=== PATIENT | male | born 1990 | race Caucasian/White ===

== ENCOUNTER 2020-11-20 18:04 | Emergency (ER) | payer BC, OTHER ==
[~2020-11-20] VITALS: Ht 185.4 cm; Wt 73.5 kg
--- NOTE | 2020-11-20 18:13 | NUR ---
pt BIB [facility] from home for potential OD. per report, pt was drinking ETOH and snorted crushed-up pills, then went home to lay down on his couch to rest where he was found cyanotic and unarousable by his girlfriend who then called paramedics per report, on scene, pt was initially obtunded and SaO2 was 9%. pt was given BVm and then became arousable after a few minutes. no narcan was given on scene upon arrival, pt is awake and talking on his cell phone. no apparent resp. distress no family at bedside
[2020-11-20] MEDS ORDERED: SODIUM CHLORIDE 0.9% 1,000ML IVBOLUS ONE (18:30)
--- NOTE | 2020-11-20 18:30 | NUR ---
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 anxious but cooperative pt updated on POC pt girlfriend at bedside
[2020-11-20 18:48] LABS: BASOPHILS % (AUTO) 1 % (0-1); EOSINOPHILS % (AUTO) 3 % (1-7); LYMPHOCYTES % (AUTO) 37 % (22-44); MEAN CORPUSCULAR HEMOGLOBIN 30.4 pg (27.5-34.5); MEAN CORPUSCULAR HGB CONC 33.7 g/dL (33.2-36.2); MEAN PLATELET VOLUME 7.8 fL (7.4-10.4); MONOCYTES % (AUTO) 5 % (2-9); NEUTROPHILS % (AUTO) 54 % (42-75); PLATELET COUNT 297 x10^3/uL (130-400); RED BLOOD COUNT 4.53 x10^6/uL (4.38-5.82); RED CELL DISTRIBUTION WIDTH 12.9 % (9.4-14.8)
[2020-11-20 18:49] LABS: MD NO
[2020-11-20 18:54] LABS: ALANINE AMINOTRANSFERASE 20 U/L (12-78); ALBUMIN 4.4 g/dL (3.4-5.0); ANION GAP 7 mmol/L (5-15); CALCIUM 8.8 mg/dL (8.5-10.1); CHLORIDE 107 mmol/L (98-107); CREATININE 1.05 mg/dL (0.7-1.3)
[2020-11-20 18:56] LABS: ALKALINE PHOSPHATASE 57 U/L (45-117); BILIRUBIN,TOTAL 0.4 mg/dL (0.2-1.0); TOTAL PROTEIN 7.9 g/dL (6.4-8.2)
--- NOTE | 2020-11-20 19:09 | NUR ---
REPORT RECIEVED FROM SRIKANTH ARREDONDO. PT AMBULATED TO RESTROOM FOR URINE SAMPLE AT THIS TIME
[2020-11-20 19:41] LABS: AMPHETAMINE SCREEN, URINE Negative (Negative); BARBITURATE SCREEN, URINE Negative (Negative); BENZODIAZEPINE SCREEN, URINE Positive (Negative); CANNABINOID SCREEN, URINE Positive (Negative); COCAINE SCREEN, URINE Negative (Negative); METHADONE SCREEN, URINE Negative (Negative); OPIATE SCREEN, URINE Positive (Negative)
[2020-11-20 20:15] VITALS: BP 122/78
== END 2020-11-20 20:45 | disposition home or self-care (01) ==
LOC: ED 20:42
DX: T42.4X1A Poisoning by benzodiazepines, accidental (unintentional), initial encounter (principal); R40.0 Somnolence; Y92.89 Other specified places as the place of occurrence of the external cause
CPT/HCPCS: 36415; 80053; 80299; 80307; 80320; 80329; 85025; 93005; 96360; 99284; J7030; G0480